=== PATIENT | male | born 1990 | race Caucasian/White ===

== ENCOUNTER 2022-03-09 04:51 | Day surgery (SDC) | payer OTHER ==
[2022-03-05 16:47] VITALS: BMI 34.9
[2022-03-09 12:27] VITALS: RESP 18; TEMP 97.8
[2022-03-09] MEDS ORDERED: MIDAZOLAM HCL 2 MG/2 ML SINGLE DOSE VIAL ONE (14:25)
[2022-03-09] MEDS ORDERED: LIDOCAINE VISCOUS 2% ORAL/TOP 15 ML UNIT-DOSE CUP ONE (15:01)
[2022-03-09 16:12] VITALS: BP 105/73; PULSE 60
== END 2022-03-09 16:12 | disposition home or self-care (01) ==
LOC: JASU-ENDO 04:51
PROVIDERS: ATTEND Internal Medicine Cardiovascular Disease
PROC: B246ZZ4 Ultrasonography of Right and Left Heart, Transesophageal (ICD-10-PCS; principal; 2022-03-09 12:30)
DX: Q21.12 Patent foramen ovale (principal); I63.81 Other cerebral infarction due to occlusion or stenosis of small artery; Z82.49 Family history of ischemic heart disease and other diseases of the circulatory system
CPT/HCPCS: 93312; 93325